=== PATIENT | female | born 1935 | race Caucasian/White ===

== ENCOUNTER 2017-08-29 11:15 | Emergency (ER) | payer MEDICARE ==
--- NOTE | 2017-08-29 11:43 | RAD ---
PORTABLE CHEST ONE VIEW: Date: 08-29-17 Time: 11:36 a.m. History: Dyspnea. Comparison: 09-13-16 FINDINGS: The heart size is normal. The aorta is tortuous. Mild chronic changes are again seen. No focal areas of consolidation, pneumothorax, or pleural effusions are seen. IMPRESSION: No acute process. POS: [facility]
[2017-08-29 11:45] LABS: #Eosinphils 0.1 thou/uL (0.0-0.7); #Lymphocytes 1.8 thou/uL (1.20-3.40); #Monocytes 0.6 thou/uL (0.11-0.59); #Neutrophils 5.7 thou/uL (1.40-6.50); %Basophils 0.3 % (0.0-1.0); %Lymphocytes 21.7 % (21.0-51.0); %Monocytes 7.3 % (0.0-10.0); Hematocrit 35.7 % (36.0-47.0); Mean Platelet Volume 8.4 fL (7.4-10.4); Red Blood Cell (RBC) Count 3.82 mill/uL (4.20-5.40); White Blood Cell (WBC) Count 8.1 thou/uL (4.8-10.8)
[2017-08-29 12:10] LABS: Lactic Acid - Sepsis 1.8 mmol/L (0.5-2.2)
[2017-08-29 12:19] LABS: ALT (SGPT) 20 U/L (8-55); AST (SGOT) 48 U/L (5-34); Alkaline Phosphatase 77 U/L (40-150); Anion Gap 13 mmol/L (10-20); BUN (Urea Nitrogen) 11 mg/dL (9.8-20.1); Bilirubin, Total 0.4 mg/dL (0.2-1.2); Calc. Creatinine Clearance 0 mL/min (70-130); Calcium 8.5 mg/dL (7.8-10.44); Carbon Dioxide 20 mmol/L (23-31); Chloride 102 mmol/L (98-107); Estimated GFR-MDRD Greater than 90; Globulin 3.4 g/dL (2.4-3.5); Protein, Total 6.8 g/dL (6.0-8.3)
[2017-08-29] MEDS ORDERED: Cefepime 2 GM, Syringe 2.5 ML in Sterile Water 10 ML SLOW IVP SCH (12:30)
[2017-08-29] MEDS ORDERED: Potassium Chloride 20 MEQ in Sodium Chloride 0.9% 250 ML 250 ML IVPB SCH (12:45)
[2017-08-29 13:22] LABS: Sodium 134 mmol/L (135-148)
[2017-08-29 13:23] LABS: Mode 2L/M NASAL CANNULA
[2017-08-29] MEDS ORDERED: Potassium Chloride 20 MEQ TAB ONE ×2 (13:50→13:51)
== END 2017-08-29 18:47 | disposition short-term general hospital (02) ==
LOC: ERS 11:15
DX: J18.9 Pneumonia, unspecified organism (principal); J96.91 Respiratory failure, unspecified with hypoxia; G30.9 Alzheimer's disease, unspecified; J44.9 Chronic obstructive pulmonary disease, unspecified; Z87.891 Personal history of nicotine dependence
CPT/HCPCS: 36415; 71010; 80053; 82805; 83605; 83735; 85025; 87040; 93005; 94640; 96361; 96365; 96366; 96368; 96375; A4216; J0692; J1956; J3480; J7050; J7620